=== PATIENT | male | born 1950 | race Caucasian/White ===

== ENCOUNTER → 2019-04-23 07:46 | Day surgery (SDC) | payer MEDICARE ==
[~2019-04-23 07:46] MED LIST: Acetaminophen TAB* 325 MG PO PRN; Diazepam TAB(*) 5 MG PO PRN; Iohexol 300* (CONTRAST) 10 ML SDV ONE; Lidocaine 1% INJ* 10 MG/ML 30 ML SDV ONE; Midazolam* 1 MG/ML 5 ML VIAL (5 MG) ONE; NS 0.9% 1000 ML** 1,000 ML IV SCH; ceFAZolin 1 GM/10 ML flush(*) SYRINGE for pocket flush (cardiology) FLUSH ONE; ceFAZolin* 2 GM* ONE DOSE (Duplex) IVPB; fentaNYL* 50 MCG/ML 2 ML VIAL (100 MCG VIAL) ONE
[2019-04-23 15:28] VITALS: BP 119/73
--- NOTE | 2019-04-24 09:59 | OP ---
DATE OF OPERATION: 04/23/19 - [facility] CATH DATE OF : 52 SURGEON: Franklyn Watts MD ANESTHESIA: Local anesthesia with conscious sedation. PRE-OP DIAGNOSES: Pacemaker at [employer], atrial lead with low impedance. POST-OP DIAGNOSES: Pacemaker at [employer], atrial lead with low impedance. PROCEDURE: Dual chamber pacemaker generator change with an attempted atrial lead revision. ESTIMATED BLOOD LOSS: 30 cc. COMPLICATIONS: Unable to place atrial lead due to vein stenosis. 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 The patient has been followed in my office. The patient was found to be at [employer] for his pacemaker also his atrial lead had a low impedance and likely had insulation fractures and atrial lead replacement was recommended. DESCRIPTION OF PROCEDURE: The patient was brought to the procedure room in a fasting state. Informed consent had obtained prior to the procedure, all labs were reviewed. The patient was placed supine. On the procedure table, his left deltopectoral was cleaned and draped in usual fashion. 1% lidocaine was used for local anesthesia. A venogram of the left arm showed that the left axillary cephalic and innominate veins were open and patent. A 4 cm incision was made along the previous incision line. Blunt dissection was carried down to the fiber sheath. The fiber sheath was opened and the pacemaker was removed from the pocket. The old pacemaker was detached from the previous atrial ventricular leads and placed aside. Using fluoroscopic guidance, the axillary vein was entered by Seldinger technique and a guidewire was placed. The guidewire was advanced to the innominate vein. A 7-And[place] sheath introducer was then placed and an atrial lead was advanced to the innominate vein. At that point, the new atrial pacemaker lead could not be advanced past the junction of the innominate vein and the right jugular vein. 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 There were multiple attempts to cross the stenosis. I was ultimately able to cross it with a Wholey wire, but was unable to advance any other catheters into that space. A long dilating sheath was unable to be passed. A Sones catheter was unable to be passed. Ultimately, the new atrial lead was abandoned. Prolonged procedure with total time spent of 2 hours A new generator was attached appropriately to the atrial ventricular leads. The pocket was flushed with antibiotic infused normal saline. The new pacemaker was placed into the pocket. The surgical incision was closed in 3 layers. The explanted pacemaker is a [employer] model 5826 serial number [id number]. The new pacemaker is a [employer] model PM 2272 serial number [id number] The atrial lead had an impedance of 100 through the new pacemaker, P-waves were 2.0, threshold 1.25 V at 0.4 ms. The ventricular lead had an R-waves sensitivity of 3.6, impedance 640 ohms, threshold 1 V at 0.4 ms. The patient tolerated procedure well. [id number]/[facility] #: [id number] RAY
== END | disposition home or self-care (01) ==
LOC: CHICATH 07:46
PROVIDERS: ATTEND Specialist
DX: Z45.010 Encounter for checking and testing of cardiac pacemaker pulse generator [battery] (principal); T82.190A Other mechanical complication of cardiac electrode, initial encounter; I49.5 Sick sinus syndrome; Z95.2 Presence of prosthetic heart valve; E78.5 Hyperlipidemia, unspecified; N18.3 Chronic kidney disease, stage 3 (moderate); N40.0 Benign prostatic hyperplasia without lower urinary tract symptoms; I65.22 Occlusion and stenosis of left carotid artery; Z87.891 Personal history of nicotine dependence
CPT/HCPCS: 33216; 33228; 71046; 88300; 99156; 99157; C1785; C1887; C1892; J0690; J2250; J3010